=== PATIENT | male | born 1965 | race Caucasian/White ===

== ENCOUNTER 2017-11-02 16:08 | Emergency (ER) | payer OTHER ==
[2017-11-02 16:39] VITALS: BP 158/89
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
--- NOTE | 2017-11-02 17:49 | Emergency Department Report ---
ED Upper Extremity Inj HPI - General Chief Complaint: Extremity Problem,Nontraumatic Stated Complaint: FINGER INJURY Time Seen by Provider: 11/02/17 17:44 Source: patient Mode of arrival: Ambulatory Limitations: No Limitations - Related Data Allergies Allergy/AdvReac Type Severity Reaction Status Date / Time No Known Allergies Allergy Unverified 11/02/17 16:39 ED Review of Systems ROS: Stated complaint: FINGER INJURY Other details as noted in HPI ED Past Medical Hx - Past Medical History Previous Medical History?: No - Surgical History Past Surgical History?: No - Social History Smoking Status: Never Smoker Substance Use Type: None ED Physical Exam - General Limitations: No Limitations ED Course Vital Signs 11/02/17 16:31 Temperature 98.7 F Pulse Rate 92 H Respiratory 16 Rate Blood Pressure 158/89 O2 Sat by Pulse 98 Oximetry Critical care attestation.: If time is entered above; I have spent that time in minutes in the direct care of this critically ill patient, excluding procedure time. ED Disposition Condition: Stable Referrals: PRIMARY CARE [Primary Care Provider] - 3-5 Days
[2017-11-02] MEDS ORDERED: TYLENOL PO ONE (18:27)
[2017-11-02] MEDS ORDERED: NORCO 5/325 PO ONE (18:32)
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
--- NOTE | 2017-11-02 18:52 | Cat Scan Report ---
FINAL REPORT PROCEDURE: CT HEAD/BRAIN WO CON TECHNIQUE: Computerized tomography of the head was performed without contrast material. HISTORY: head trauma with headache COMPARISON: No prior studies are available for comparison. FINDINGS: There is no CT evidence of intracranial mass, hemorrhage, acute territorial infarction, or hydrocephalus. The intracranial arteries are symmetric in density. There is mild frontal scalp soft tissue swelling. No acute fracture is identified. There is deformity of the nasal bones, which appears chronic. The mastoids are hypopneumatized. IMPRESSION: Mild frontal scalp soft tissue swelling, otherwise no acute abnormality is identified
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
== END 2017-11-02 19:35 | disposition home or self-care (01) ==
LOC: EDSEX → ED 16:08
DX: S00.03XA Contusion of scalp, initial encounter (principal); S63.614A Unspecified sprain of right ring finger, initial encounter; Y08.89XA Assault by other specified means, initial encounter; Y93.89 Activity, other specified; Y92.89 Other specified places as the place of occurrence of the external cause; Y99.8 Other external cause status
CPT/HCPCS: 70450; 99284